=== PATIENT | female | born 1975 | race Caucasian/White ===

== ENCOUNTER → 2016-09-04 | Outpatient (CLI) | payer BC, OTHER ==
--- NOTE | 2016-09-04 15:15 | MY ---
EXAMINATION: Bilateral digital mammography utilizing CAD. HISTORY: Screening exam. Comparison is made to previous studies dated 10/17/2014. FINDINGS: Bilateral scattered fibroglandular densities. No suspicious calcifications, masses or ar chitectural distortions. No pathologic appearing lymph nodes, no abnormal skin thickening or nippl e inversion. CAD highlighted regions appear normal at this time. IMPRESSION: BI-RADS category I - negative mammogram. Continued screening according to ACR-ACS gu idelines suggested. THE FALSE-NEGATIVE RATE OF MAMMOGRAM IS APPROXIMATELY 10%. MANAGEMENT OF A PALPABLE ABNORMALITY MUST BE BASED UPON CLINICAL GROUNDS. SENSITIVITY FOR DETECTION OF ABNORMALITIES IN DENSE BREASTS IS LOW. NOTE: A letter will be sent to the patient regarding findings. [facility] -- ASHLYN Hsu [phone] - FAX [phone]
== END ==
LOC: MW.MAM 08:29
PROVIDERS: ATTEND Nurse Practitioner Family
DX: Z12.31 Encounter for screening mammogram for malignant neoplasm of breast (principal)
CPT/HCPCS: G0202; G0202-26

== ENCOUNTER 2017-03-11 10:22 | Day surgery (SDC) | payer BC, OTHER ==
[~2017-03-11 10:22] MED LIST: Lactated Ringers 1,000 ML IV SCH; Sodium Chloride 0.9% 10 ML Syringe FLUSH PRN; Sodium Chloride 0.9% 2.5 ML Syringe FLUSH PRN
--- NOTE | 2017-03-11 11:52 | PCM.PREANE ---
Preanesthetic Assessment - Anesthesia/Transfusion/Family Hx Anesthesia History: Prior Anesthesia Without Reaction Family History of Anesthesia Reaction: No Transfusion History: No Prior Transfusion(s) Intubation History: Unknown - Review of Systems General: No Symptoms Pulmonary: No Symptoms Cardiovascular: No Symptoms Gastrointestinal: Abdominal Pain Neurological: No Symptoms Other: Reports: None - Physical Assessment Height: 1.6 m Weight: 83.007 kg ASA Class: 2 Mental Status: Alert & Oriented x3 Airway Class: Mallampati = 2 Dentition: Reports: Normal Dentition Thyro-Mental Finger Breadths: 2 Mouth Opening Finger Breadths: 3 ROM/Head Extension: Full Lungs: Clear to Auscultation, Normal Respiratory Effort Cardiovascular: Regular Rate, Regular Rhythm - Lab Values: Laboratory Last Values Urine HCG, Qual NEGATIVE (NEGATIVE) 03/11/17 10:29 - Allergies Allergies/Adverse Reactions: Allergies Allergy/AdvReac Type Severity Reaction Status Date / Time No Known Allergies Allergy Verified 12/29/13 12:09 - Blood Blood Available: No - Anesthesia Plan Pre-Op Medication Ordered: None - Acknowledgements Anesthesia Type Planned: MAC Pt an Appropriate Candidate for the Planned Anesthesia: Yes Alternatives and Risks of Anesthesia Discussed w Pt/Guardian: Yes Pt/Guardian Understands and Agrees with Anesthesia Plan: Yes PreAnesthesia Questionnaire HEENT History: Reports: Other (See Below) Other HEENT History: currently on antibiotic for sinus infection Gastrointestinal History: Reports: Cholelithiasis, Gastritis, Other (See Below) Other Gastrointestinal History: RUQ pain, gallstones Genitourinary History: Reports: None 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, Endocrine/Metabolic History: Reports: Obesity/BMI 30+ - Past Surgical History Head Surgeries/Procedures: Reports: None Female Surgical History: Reports: Other (See Below) Other Female Surgeries/Procedures: laparoscopy for endometriosis - SUBSTANCE USE Smoking Status *Q: Never Smoker Recreational Drug Use History: No - HOME MEDS Home Medications: Home Meds Amoxicillin 1 tab PO BID 03/09/17 [History] Levonorgestrel-Ethin Estradiol [Jolessa 0.15 mg-0.03 mg Tablet] 1 tab PO DAILY 03/09/17 [History] - CURRENT (IN HOUSE) MEDS Current Meds: Current Medications Lactated Ringer's (Ringers, Lactated) 1,000 mls @ 125 mls/hr IV ASDIRECTED OJ Sodium Chloride (Saline Flush) 10 ml FLUSH ASDIRECTED PRN PRN Reason: Keep Vein Open Sodium Chloride (Saline Flush) 2.5 ml FLUSH ASDIRECTED PRN PRN Reason: Keep Vein Open
[2017-03-11] MEDS ORDERED: Ondansetron 4 MG/2 ML SDV ONE (12:51)
[2017-03-11] MEDS ORDERED: Propofol 200 MG/20 ML SDV ONE (12:52)
[2017-03-11] MEDS ORDERED: Midazolam 1 MG/ML 2 ML SDV ONE (12:52)
[2017-03-11] MEDS ORDERED: fentaNYL 100 MCG/2 ML SDV ONE (12:52)
--- NOTE | 2017-03-11 13:30 | PCM.OPNOTE ---
- General Post-Op/Procedure Note Date of Surgery/Procedure: 03/11/17 Operative Procedure(s): EGD Findings: Gastric polyps, gastritis and duodenitis Pre Op Diagnosis: epigastric pain Post-Op Diagnosis: gastritis, duodenitis, gastric polyps Anesthesia Technique: GARTH Primary Surgeon: Erinn Jasmine Condition: Good
--- NOTE | 2017-03-12 | OR ---
SURGEON: DENIA MAKI MD DATE OF PROCEDURE: 03/11/2017 PREOPERATIVE DIAGNOSIS: Epigastric pain. POSTOPERATIVE DIAGNOSIS: Gastritis, duodenitis, gastric polyps. PROCEDURE PERFORMED: Diagnostic esophagogastroduodenoscopy. INSTRUMENT USED: Olympus endoscope. ANESTHESIA: MAC. EXTENT OF EXAM: To the second portion of duodenum. PREPARATION: Good. LIMITATIONS: None. INDICATION FOR EXAMINATION: The patient is a 41-year-old female who presents with epigastric pain. She takes a large amount of NSAIDs daily due to chronic headaches. She was recently found on right upper quadrant ultrasound to have cholelithiasis. Her symptoms are consistent with either gastritis and duodenitis, symptomatic cholelithiasis, or both. The decision was made to start with a diagnostic EGD to look for signs of gastritis and duodenitis. The patient and I discussed the procedure as well as expected perioperative course. We discussed the risks including bleeding and perforation. The patient verbalized understanding and wishes to proceed. PROCEDURE IN DETAIL: The patient was brought into the endoscopy suite and placed in a beach chair position. A time-out was completed verifying the patient's name, age, date of , allergies, and procedure to be performed. A bite block was placed in the patient's mouth and monitored anesthesia care induced. After adequate sedation was achieved, a well-lubricated endoscope was then placed in the patient's mouth and advanced under direct visualization to the second portion of the duodenum. This appeared normal. A photograph was taken. The scope was then fully withdrawn while examining the color, texture, anatomy, and integrity of the mucosa from the second portion the duodenum throughout the upper GI tract. In the duodenal bulb, the patient was found to have superficial ulcerations and inflammation consistent with duodenitis. The scope was then brought into the stomach and a photograph taken of the pylorus and esophageal hiatus. Both of these appeared normal. The antrum of the stomach appeared inflamed consistent with gastritis. The patient had numerous small hyperplastic appearing polyps in the body of the stomach. Biopsies were taken of the antrum body and fundus and sent for H. pylori testing. One gastric polyp was removed and sent to pathology labeled as gastric polyp. The scope was then brought into the distal esophagus. The GE junction appeared normal with no evidence of esophagitis or ulceration. A photograph was taken. The remainder of the esophagus appeared normal. The scope was then removed from the patient and the procedure terminated. The patient was transferred to the recovery room in stable condition. ENDOSCOPIC DIAGNOSES: 1. Duodenitis. 2. Gastritis. 3. Gastric polyps. RECOMMENDATIONS: I sat down and visited with the patient regarding these findings after the procedure. I will start her on pantoprazole and sucralfate. I advised her to stop taking NSAIDs. The patient was scheduled to have a cholecystectomy performed next week. However, she would like to see if this medication helps with her epigastric discomfort. She will visit with her primary care physician regarding other medications she can take to try and control her headaches. MARCIA LAMAS /[id number]
== END 2017-03-11 14:25 | disposition home or self-care (01) ==
LOC: MW.SDS 10:22
PROVIDERS: ATTEND Surgery
PROC: 0DB78ZX Excision of Stomach, Pylorus, Via Natural or Artificial Opening Endoscopic, Diagnostic (ICD-10-PCS; principal; 2017-03-11)
DX: K29.50 Unspecified chronic gastritis without bleeding (principal); N80.9 Endometriosis, unspecified; J02.9 Acute pharyngitis, unspecified; Z79.899 Other long term (current) drug therapy
CPT/HCPCS: 43239; 81025; J2250; J2405; J3010; 88305; 88312; J2704

== ENCOUNTER 2017-05-27 06:32 | Day surgery (SDC) | payer BC, OTHER ==
[~2017-05-27 06:32] MED LIST changes: +ceFAZolin 2 GM in Premix Bag 1 BAG IV ONE
[2017-05-27] MEDS ORDERED: Bupivacaine 0.5% 30 ML SDV ONE (07:18)
[2017-05-27] MEDS ORDERED: Propofol 200 MG/20 ML SDV ONE (07:23)
[2017-05-27] MEDS ORDERED: fentaNYL 100 MCG/2 ML SDV ONE (07:23)
[2017-05-27] MEDS ORDERED: Midazolam 1 MG/ML 2 ML SDV ONE (07:23)
[2017-05-27] MEDS ORDERED: HYDROmorphone 2 MG/ML Syringe ONE (07:23)
[2017-05-27] MEDS ORDERED: diphenhydrAMINE 50 MG/ML SDV ONE (07:26)
[2017-05-27] MEDS ORDERED: Ketorolac 30 MG/ML SDV ONE (07:26)
[2017-05-27] MEDS ORDERED: Ondansetron 4 MG/2 ML SDV ONE (07:26)
[2017-05-27] MEDS ORDERED: Lidocaine 2% 5 ML SDV ONE (07:26)
[2017-05-27] MEDS ORDERED: Rocuronium 10 MG/ML 10 ML Syringe ONE (07:26)
[2017-05-27] MEDS ORDERED: Neostigmine Methylsulfate 1 MG/ML 5 ML Syringe ONE (07:26)
[2017-05-27] MEDS ORDERED: Scopolamine 1.5 MG Transdermal Patch TRDERM PRN (07:28)
--- NOTE | 2017-05-27 07:36 | PCM.PREANE ---
Preanesthetic Assessment - Anesthesia/Transfusion/Family Hx Anesthesia History: Prior Anesthesia Without Reaction Family History of Anesthesia Reaction: No Transfusion History: No Prior Transfusion(s) Intubation History: Unknown - Review of Systems General: No Symptoms Pulmonary: No Symptoms Cardiovascular: No Symptoms Gastrointestinal: No Symptoms Neurological: No Symptoms Other: Reports: None - Physical Assessment O2 Sat by Pulse Oximetry: 98 Respiratory Rate: 16 Vital Signs: Last Vital Signs Temp 36.8 C 05/27/17 07:12 Pulse 79 05/27/17 07:12 Resp 16 05/27/17 07:12 BP 150/75 H 05/27/17 07:12 Pulse Ox 98 05/27/17 07:12 Height: 1.6 m Weight: 82.554 kg ASA Class: 2 Mental Status: Alert & Oriented x3 Airway Class: Mallampati = 2 Dentition: Reports: Normal Dentition ROM/Head Extension: Full Lungs: Clear to Auscultation, Normal Respiratory Effort Cardiovascular: Regular Rate, Regular Rhythm - Lab Values: Laboratory Last Values Urine HCG, Qual NEGATIVE (NEGATIVE) 05/27/17 06:34 - Allergies Allergies/Adverse Reactions: Allergies Allergy/AdvReac Type Severity Reaction Status Date / Time No Known Allergies Allergy Verified 12/29/13 12:09 - Anesthesia Plan Pre-Op Medication Ordered: None - Acknowledgements Anesthesia Type Planned: General Anesthesia Pt an Appropriate Candidate for the Planned Anesthesia: Yes Alternatives and Risks of Anesthesia Discussed w Pt/Guardian: Yes Pt/Guardian Understands and Agrees with Anesthesia Plan: Yes PreAnesthesia Questionnaire HEENT History: Reports: Allergic Rhinitis Other HEENT History: currently on antibiotic for sinus infection Cardiovascular History: Reports: Hypertension Gastrointestinal History: Reports: Cholelithiasis, GERD Other Gastrointestinal History: GERD in the past, rt upper quad pain Genitourinary History: Reports: None 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 Endocrine/Metabolic History: Reports: Obesity/BMI 30+ - Past Surgical History Head Surgeries/Procedures: Reports: None GI Surgical History: Reports: EGD Female Surgical History: Reports: Other (See Below) Other Female Surgeries/Procedures: hysteroscopy, exploratory laparoscopy - SUBSTANCE USE Smoking Status *Q: Never Smoker Recreational Drug Use History: No - HOME MEDS Home Medications: Home Meds Levonorgestrel-Ethin Estradiol [Jolessa 0.15 mg-0.03 mg Tablet] 1 tab PO DAILY 03/09/17 [History] Propranolol [Inderal] 20 mg PO BID 05/22/17 [History] - CURRENT (IN HOUSE) MEDS Current Meds: Current Medications Lactated Ringer's (Ringers, Lactated) 1,000 mls @ 125 mls/hr IV ASDIRECTED OJ Last Admin: 05/27/17 07:01 Dose: 125 mls/hr Scopolamine (Transderm-Scop) 1.5 mg TRDERM Q72H PRN PRN Reason: Nausea Sodium Chloride (Saline Flush) 10 ml FLUSH ASDIRECTED PRN PRN Reason: Keep Vein Open Sodium Chloride (Saline Flush) 2.5 ml FLUSH ASDIRECTED PRN PRN Reason: Keep Vein Open Discontinued Medications Bupivacaine HCl (Marcaine 0.5%) Confirm Administered Dose 30 ml .ROUTE .STK-MED ONE Stop: 05/27/17 07:19 Diphenhydramine HCl (Benadryl) Confirm Administered Dose 50 mg .ROUTE .STK-MED ONE Stop: 05/27/17 07:27 Fentanyl (Sublimaze) Confirm Administered Dose 100 mcg .ROUTE .STK-MED ONE Stop: 05/27/17 07:24 Glycopyrrolate () Confirm Administered Dose 1 mg .ROUTE .STK-MED ONE Stop: 05/27/17 07:27 Hydromorphone HCl (Dilaudid) Confirm Administered Dose 2 mg .ROUTE .STK-MED ONE Stop: 05/27/17 07:24 Cefazolin Sodium/Dextrose 2 gm (/ Premix) 50 mls @ 100 mls/hr IV ONETIME ONE Stop: 05/26/17 14:30 Ketorolac Tromethamine (Toradol) Confirm Administered Dose 30 mg .ROUTE .STK- MED ONE Stop: 05/27/17 07:27 Lidocaine (Xylocaine-Mpf 2%) Confirm Administered Dose 5 ml .ROUTE .STK-MED ONE Stop: 05/27/17 07:27 Midazolam HCl (Versed 1 Mg/Ml) Confirm Administered Dose 2 mg .ROUTE .STK-MED ONE Stop: 05/27/17 07:24 Neostigmine Methylsulfate (Neostigmine) Confirm Administered Dose 5 mg .ROUTE .STK-MED ONE Stop: 05/27/17 07:27 Ondansetron HCl (Zofran) Confirm Administered Dose 4 mg .ROUTE .STK-MED ONE Stop: 05/27/17 07:27 Propofol (Diprivan 20 Ml) Confirm Administered Dose 200 mg .ROUTE .STK-MED ONE Stop: 05/27/17 07:24 Rocuronium [place] (Zemuron) Confirm Administered Dose 100 mg .ROUTE .STK-MED ONE Stop: 05/27/17 07:27
[2017-05-27] MEDS ORDERED: Scopolamine 1.5 MG Transdermal Patch ONE (07:41)
[2017-05-27] MEDS ORDERED: fentaNYL 100 MCG/2 ML SDV IVPUSH PRN (08:19)
--- NOTE | 2017-05-27 09:47 | PCM.OPNOTE ---
- General Post-Op/Procedure Note Date of Surgery/Procedure: 05/27/17 Operative Procedure(s): Laparoscopic cholecystectomy Findings: Hydroptic inflamed gallbladder Pre Op Diagnosis: Cholelithiasis Post-Op Diagnosis: Hydrops, Chronic cholecystitis Anesthesia Technique: General ET Tube Primary Surgeon: Erinn Jasmine EBL in mLs: 20 Condition: Good
[2017-05-27] MEDS ORDERED: Acetaminophen/oxyCODONE 325-5 MG Tab PO PRN (09:50)
[2017-05-27] MEDS ORDERED: Cyclobenzaprine 5 MG Tab PO PRN (09:50)
--- NOTE | 2017-05-27 10:22 | PCM.POSTAN ---
POST ANESTHESIA ASSESSMENT - MENTAL STATUS Mental Status: Alert, Oriented - RESPIRATORY Respiratory Status: Respiratory Rate WNL, Airway Patent, O2 Saturation Stable - CARDIOVASCULAR CV Status: Pulse Rate WNL, Blood Pressure Stable - GASTROINTESTINAL GI Status: No Symptoms - PAIN Pain Score: 0 - POST OP HYDRATION Hydration Status: Adequate & Stable
--- NOTE | 2017-05-27 11:40 | PCM48HPAN ---
Post Anesthesia Note - EVALUATION WITHIN 48HRS OF ANESTHETIC Vital Signs in Normal Range: Yes Patient Participated in Evaluation: Yes Respiratory Function Stable: Yes Airway Patent: Yes Cardiovascular Function Stable: Yes Hydration Status Stable: Yes Pain Control Satisfactory: Yes Nausea and Vomiting Control Satisfactory: Yes Mental Status Recovered: Yes
--- NOTE | 2017-05-27 14:20 | OR ---
SURGEON: DENIA MAKI MD DATE OF PROCEDURE: 05/27/2017 PREOPERATIVE DIAGNOSIS: Cholelithiasis. POSTOPERATIVE DIAGNOSIS: Hydropic gallbladder, chronic cholecystitis, cholelithiasis. PROCEDURE PERFORMED: Laparoscopic cholecystectomy. ANESTHESIA: General endotracheal anesthesia. FINDINGS: Distended and inflamed-appearing gallbladder. Aspirated bile appears hydropic. FLUIDS: 1500ml URINE OUTPUT: See anesthesia record. ESTIMATED BLOOD LOSS: 20 mL. COMPLICATIONS: None. INDICATIONS: The patient is a 41-year-old female with cholelithiasis. She was previously treated for gastritis and those symptoms have improved but her right upper quadrant pain persists. The decision was made to perform a laparoscopic possible open cholecystectomy. We discussed the pathophysiology of biliary disease. The treatment for cholelithiasis was removal of the gallbladder. We discussed the laparoscopic and open approaches. I will attempt this laparoscopically. Should I be unable to perform it safely, I will convert to open. We discussed the procedure, expected perioperative course, and risks including bleeding, infection, or damage to surrounding structures. The patient verbalized understanding and wished to proceed. PROCEDURE IN DETAIL: The patient was brought into the OR and placed on the OR table in supine position. A time-out was completed verifying the patient's name, age, date of , allergies, and procedure to be performed. General endotracheal anesthesia was induced. The left arm was tucked to the patient's side and Leonardo catheter placed. The abdomen was prepped and draped in the usual standard fashion. The infraumbilical fold was anesthetized with 0.5% Marcaine plain. An 11 blade was used to make an incision along her previous infraumbilical incision site. Cautery was used to dissect down to the level of subcutaneous fat. Retractors were then used to dissect down to the level of fascia. The fascia was elevated with Yumiko's and incised sharply. The peritoneum was visualized and elevated into the field. This was then cut using a Metzenbaum scissors. 2- 0 Vicryl sutures were placed within the fascia. A Jesús trocar was then placed in the abdomen and the abdomen insufflated. A 5-mm 30-degree scope was inserted into the abdomen and inspected the area underneath my incision to look for any damage to surrounding structures, and none were noted. The patient was placed into reverse Trendelenburg position and airplaned slightly to the left. 5 mm trocars were placed under direct visualization on the following locations. One in the epigastric area, one in the right flank, and one in the right subcostal area along the midclavicular line. I attempted to grasp the gallbladder through the right lateral port using an atraumatic grasper. The gallbladder was tense and inflamed. An aspirating needle was brought into the field and used to aspirate the gallbladder contents. These appeared hydropic. Approximately 40 mL of fluid were removed from the gallbladder. I then regrasped the gallbladder through the right port and lifted it above the dome of the liver. I was unable to completely elevate the gallbladder above the dome of the liver given that it had some fatty infiltration. I was however able to lift it high enough to visualize the infundibulum. Suction and gentle dissection were used to sweep the omental attachments free from the gallbladder wall. Once I could safely visualize the infundibulum, I grasped this and retracted it laterally and inferiorly. Using gentle dissection with a [place] dissector and suction, I was able to sweep away the peritoneal attachments around the cystic duct and artery. Once my critical view was achieved, a photograph was taken and I doubly clipped and ligated the cystic ducts and artery. Electrocautery was used to take the gallbladder attachments to the gallbladder fossa down. Once the gallbladder was free, it was placed in an EndoCatch bag and removed through the 12-mm port site at the umbilicus. The Jesús trocar was then replaced back into the abdomen and my operative field inspected. The clips appeared to be in good position with no leakage of bile or bleeding. The abdomen was irrigated copiously until the fluid ran clear. The trocars were then removed under direct visualization and the abdomen allowed to desufflate. The fascia was then closed with 0 Vicryl sutures. The 12-mm port site was closed with interrupted 3-0 Vicryl in the subcutaneous fat and a running 4-0 Monocryl stitch in the skin. The 5-mm trocar sites were closed with interrupted 4-0 Monocryl. Steri-Strips and sterile dressings were applied. The patient was taken to PACU in stable condition. MARCIA LAMAS /[id number] SHEKHAR
== END 2017-05-27 12:21 | disposition home or self-care (01) ==
LOC: MW.SDS 06:32
PROVIDERS: ATTEND Surgery
DX: K80.10 Calculus of gallbladder with chronic cholecystitis without obstruction (principal); I10 Essential (primary) hypertension; Z79.899 Other long term (current) drug therapy
CPT/HCPCS: 47562; 81025; A9270; J1170; J1200; J1885; J2250; J2405; J3010; J7120; 00790; 88304; J2704

== ENCOUNTER 2025-02-16 09:09 | Emergency (ER) | payer OTHER ==
[2025-02-16 10:35] LABS: BASOPHILS ABSOLUTE AUTO 0.05 K/uL (0.00-0.20); BASOPHILS PERCENT AUTO 0.5 % (0.0-1.0); EOSINOPHILS ABSOLUTE AUTO 0.15 K/uL (0.00-0.45); EOSINOPHILS PERCENT AUTO 1.5 % (0.0-6.0); IMMATURE GRAN ABSOLUTE AUTO 0.04 K/uL (0.00-0.05); IMMATURE GRAN PERCENT AUTO 0.4 % (0.0-0.4); LYMPHOCYTES ABSOLUTE AUTO 2.47 K/uL (1.00-4.80); LYMPHOCYTES PERCENT AUTO 25.4 % (24.0-44.0); MEAN PLATELET VOLUME 9.4 fL (9.4-12.3); MONOCYTES ABSOLUTE AUTO 0.61 K/uL (0.00-0.80); MONOCYTES PERCENT AUTO 6.3 % (0.0-8.0); NEUTROPHILS ABSOLUTE AUTO 6.42 K/uL (1.80-7.70); NEUTROPHILS PERCENT AUTO 65.9 % (41.0-71.0); NRBC ABSOLUTE 0.00 K/uL (0.00-0.02); NRBC PERCENT 0.0 /100WBC (0.0-0.2); PLATELET COUNT,PLT 254 K/uL (150-400); RED BLOOD CELL COUNT 4.44 M/uL (4.10-5.30); WHITE BLOOD CELL COUNT,WBC 9.74 K/uL (3.9-11.3)
[2025-02-16 11:07] LABS: A/G RATIO 0.8 (0.9-1.6); ALANINE AMINOTRANSFERASE,ALT 35.0 IU/L (14-63); ASPARTATE AMNIOTRANSFERASE,AST 22.0 IU/L (15-37); BILIRUBIN TOTAL 0.4 mg/dL (0.2-1.0); BLOOD UREA NITROGEN,BUN 10.0 mg/dL (7.0-18.0); CARBON DIOXIDE,CO2 26.1 mmol/L (21.0-32.0); CHLORIDE,CL 104.0 mmol/L (98-107); CREATININE 1.2 mg/dL (0.6-1.0); EST CRCL DRUG DOSING (CG) 44.36 mL/min; GLUCOSE RANDOM 91.0 mg/dL (74-106); POTASSIUM,K 4.4 mmol/L (3.5-5.1); PROTEIN TOTAL,TP 7.1 g/dL (6.4-8.2); SODIUM,NA 140.0 mmol/L (136-145)
[2025-02-16 11:09] LABS: ESTIMATED GFR 55.0 mL/min (>60)
[2025-02-16] MEDS: Ketorolac 30 MG/ML SDV IVPUSH ONE (11:58)
[2025-02-16] MEDS: Iopamidol 755 MG/ML 500 ML Multipack Bottle IVPUSH ONE (12:09)
[2025-02-16 13:25] LABS: APPEARANCE,URINE SLT CLOUDY; GLUCOSE,URINE NEGATIVE (NEGATIVE)
[2025-02-16 13:26] LABS: OCCULT BLOOD,URINE TRACE-INTACT (NEGATIVE)
[2025-02-16 13:28] LABS: EPITHELIAL CELLS,URINE FEW (NONE-FEW)
== END 2025-02-16 13:48 | disposition home or self-care (01) ==
LOC: MW.ED 09:09
DX: R10.31 Right lower quadrant pain (principal); I10 Essential (primary) hypertension; K21.9 Gastro-esophageal reflux disease without esophagitis; Z79.899 Other long term (current) drug therapy
CPT/HCPCS: 36415; 74177; 80053; 81001; 83690; 85025; 96361; 96374; 99284; J1885; J7030; Q9967